=== PATIENT | male | born 1965 | race Two or more races ===

== ENCOUNTER 2023-04-21 20:36 | Emergency (ER) | payer MEDICARE, MEDICAID ==
[~2023-04-21] VITALS: Ht 172.7 cm; Wt 86.6 kg
[2023-04-21 21:15] LABS: Basophils # (auto) 0.1 10 ^3/uL (0-0.2); Basophils % (auto) 0.9 % (0.0-2.0); Eosinophils # (auto) 0.1 10 ^3/uL (0-0.8); Eosinophils % (auto) 0.7 % (0.0-7.0); Hematocrit 47.3 % (41.0-53.0); Hemoglobin 15.6 g/dL (13.5-17.5); Lymphocytes # (auto) 2.4 10 ^3/uL (0.4-5.4); Lymphocytes % (auto) 33.7 % (10.0-50.0); Mean Corpuscular Hemoglobin 30.5 pg (28.0-32.0); Mean Corpuscular Volume 92.2 fL (80.0-100.0); Monocytes # (auto) 0.4 10 ^3/uL (0-1.3); Monocytes % (auto) 5.5 % (0.0-12.0); Neutrophils # (auto) 4.2 10 ^3/uL (1.6-8.6); Neutrophils % (auto) 59.2 % (37.0-80.0); Nucleated Red Blood Cells % 0.2 %; Red Blood Cells 5.13 10^6/uL (4.5-5.90); Red Cell Distribution Width 14.1 % (11.8-14.3)
[2023-04-21 21:38] LABS: INR 0.96 (0.9-1.15); Partial Thromboplastin Time 29.7 SEC (24.5-34.5); Prothrombin Time 10.1 sec (9.3-11.8)
[2023-04-21 21:43] LABS: Alanine Aminotransferase 22 U/L (7-40); Alkaline Phosphatase 260 U/L (46-116); Anion Gap 9.2 (5-15); Aspartate Aminotransferase 19 U/L (13-40); BUN/Creatinine Ratio 7.9 (10.0-20.0); Bilirubin, Total 0.2 mg/dL (0.2-1.0); Blood Urea Nitrogen 8 mg/dL (9-23); Carbon Dioxide 21.8 mmol/L (20-30); Chloride 100 mmol/L (98-107); Magnesium 1.9 mg/dL (1.6-2.6); Potassium 4.5 mmol/L (3.5-5.1); Sodium 131 mmol/L (136-145); Total Protein 6.7 g/dL (5.7-8.2)
[2023-04-21 21:47] LABS: Glucose 604 mg/dL (74-106)
[2023-04-21] MEDS ORDERED: SODIUM CHLORIDE 0.9% 1,000 ML IV ONE (22:00)
[2023-04-21] MEDS ORDERED: InsuLIN REG 1unit/0.01ml Soln (100units/ml) IV ONE (22:00)
[2023-04-21 22:52] LABS: Urine Bacteria NONE SEEN /hpf (None Seen); Urine Blood Negative /uL (Negative); Urine Clarity Clear (Clear); Urine Color Colorless (Yellow); Urine Protein, UAD Negative (Negative); Urine Specific Gravity 1.029 (1.001-1.035); Urine Urobilinogen Normal (Negative); Urine WBC <1 /hpf (0 - 3)
[2023-04-21 23:07] VITALS: BP 124/90; PULSE 96; RESP 17; TEMP 97.7; O2SAT 97
== END 2023-04-21 23:08 | disposition home or self-care (01) ==
LOC: ER 20:40
DX: R07.89 Other chest pain (principal); E11.65 Type 2 diabetes mellitus with hyperglycemia; R74.8 Abnormal levels of other serum enzymes; I10 Essential (primary) hypertension; F17.210 Nicotine dependence, cigarettes, uncomplicated; Z86.73 Personal history of transient ischemic attack (TIA), and cerebral infarction without residual deficits; Z98.890 Other specified postprocedural states
CPT/HCPCS: 36415; 71045; 80053; 81001; 83735; 83880; 84484; 85025; 85610; 85730; 93005; 96361; 96374; 99285; J1815; J7030